=== PATIENT | male | born 1990 | race African-American/Black ===

== ENCOUNTER 2018-07-31 10:22 | Emergency (ER) | payer SELFPAY ==
[~2018-07-31] VITALS: Ht 170.2 cm; Wt 73.1 kg
[2018-07-31 10:39] VITALS: Ht 170.2 cm; Wt 73.1 kg
[2018-07-31 11:21] VITALS: BP 122/71
== END 2018-07-31 11:20 | disposition home or self-care (01) ==
LOC: ED 10:22
DX: H10.12 Acute atopic conjunctivitis, left eye (principal); J45.909 Unspecified asthma, uncomplicated; Z88.6 Allergy status to analgesic agent